=== PATIENT | female | born 1990 | race Caucasian/White ===

== ENCOUNTER 2019-04-09 12:36 | Outpatient (CLI) | payer OTHER, SELFPAY | END 2019-04-09 12:37 | disposition home or self-care (01) | LOC: ANHOBOP 12:42 | PROVIDERS: PCP Internal Medicine; Visit Provider Obstetrics & Gynecology | DX: O02.1 Missed abortion (principal) | CPT/HCPCS: 36415; 84702 ==

== ENCOUNTER 2020-05-07 09:59 | Outpatient (CLI) | payer OTHER, SELFPAY ==
[2020-05-07 10:25] VITALS: BP 123/73; PULSE 109
[2020-05-07 10:30] VITALS: BP 119/72; PULSE 105
[2020-05-07 11:05] VITALS: BP 123/73; PULSE 105
--- NOTE | 2020-05-07 11:15 | PC.NURSE ---
1052-Dr. Melendez notified of pt's admission, negative ROM plus, reactive NST, and history of premature ROM with first . New orders received to discharge pt home.
== END 2020-05-07 11:05 | disposition home or self-care (01) ==
LOC: ANHOBOP 10:06 → ANHOBPP 10:09
PROVIDERS: Family Provider Internal Medicine; PCP Internal Medicine; Visit Provider Obstetrics & Gynecology
DX: O41.8X90 Other specified disorders of amniotic fluid and membranes, unspecified trimester, not applicable or unspecified (principal); Z3A.00 Weeks of gestation of pregnancy not specified
CPT/HCPCS: 59025; 84112; 99199

== ENCOUNTER 2020-06-13 13:51 | Observation (INO) | payer OTHER, SELFPAY ==
[2020-06-13 15:17] VITALS: BMI 30.3
--- NOTE | 2020-06-13 15:19 | OBADM ---
This patient, Lynette Baca, admitted to the OB room 115 at 1351 for observation after falling on wet floor at work. Patient/family oriented to hospital policies and general routines including ID bracelet, bed and alarms, visiting hours, pain management, procedures, bathroom and other care routines, personal items, smoking policy, room service/diet, and visiting hours. Patient/Family are encouraged to report perceived risks to care and to ask questions if they do not understand what they are told or what they should do.
[2020-06-13 17:02] VITALS: BP 139/68; PULSE 77
--- NOTE | 2020-07-07 09:54 | PM.OBTRLD ---
OB - Triage/Final Diagnosis Visit Information Comments/Additional reasons for admission: I have assessed the risk for this patient, Lynette Baca, and determined that she would benefit from observation care. Final Diagnosis (1) Trauma during : Code(s): O9A.219 - Injury, poisoning and certain other consequences of external causes complicating , unspecified trimester Status: Acute
== END 2020-06-13 17:28 | disposition home or self-care (01) ==
PROVIDERS: Admitting Provider Obstetrics & Gynecology; PCP Internal Medicine; Visit Provider Obstetrics & Gynecology
DX: O99.893 Other specified diseases and conditions complicating puerperium (principal); T14.90XA Injury, unspecified, initial encounter; Z3A.35 35 weeks gestation of pregnancy
CPT/HCPCS: G0378; G0379

== ENCOUNTER 2020-07-01 16:31 | Outpatient (CLI) | payer OTHER, SELFPAY ==
[2020-07-01 16:51] VITALS: BP 138/91; PULSE 105
[2020-07-01 17:00] VITALS: BP 126/78; PULSE 110
[2020-07-01 17:09] LABS: Basophils Percent Auto 0.2 % (0.2-1.2); Eosinophils Percent Auto 0.2 % (0-4.4); Hematocrit 34.2 % (37.0-47.0); Hemoglobin 11.4 g/dL (12.0-15.0); Immature Granulocyte Absolute 0.07 K/mm3 (0.00-0.031); Immature Granulocyte Percent A 0.7 % (0-0.5); Lymphocytes Absolute Auto 2.78 K/mm3 (0.9-3.2); Mean Corpuscular HGB Conc 33.3 g/dl (32-36); Mean Corpuscular Hemoglobin 27.7 pg (26-34); Mean Platelet Volume 10.4 fl (7.4-10.4); Monocytes Absolute Auto 0.6 K/mm3 (0.1-0.6); Monocytes Percent Auto 5.4 % (2.6-8.5); Neutrophils Absolute Auto 7.2 K/mm3 (1.3-6.7); Neutrophils Percent Auto 67.5 % (45.5-73.1); Platelet Count Result 184 k/mm3 (150-375); Red Blood Count 4.12 M/mm3 (4.2-5.4); Red Cell Distribution Width 13.3 % (11.5-14.5); White Blood Count 10.7 K/mm3 (4.5-10.0)
[2020-07-01 17:15] LABS: Add Urine Microscopic? YES; Appearance Urine Cloudy (Clear); Bacteria Urine 1+ /hpf; Bilirubin Urine Negative (Negative); Blood Urine Negative (Negative); Color Urine Yellow (Yellow); Glucose Urine UA Negative (Negative); Ketones Urine Negative (Negative); Leukocyte Esterase Ur Trace LEU/UL (NEGATIVE); Mucus Urine Few /lpf; Nitrate Urine Negative (Negative); Protein Urine Negative (Negative); RBC Urine 0-2 /hpf (0-2); Specific Grav Ur 1.013 (1.001-1.035); Squamous Epithelial Cell Urine Many /hpf (Few); Urobilinogen Urine Negative mg/dL (<2.0)
[2020-07-01 17:17] VITALS: BP 138/71; PULSE 105
[2020-07-01 17:17] LABS: Creatinine Urine 112.7 mg/dL; Total Protein Urine Random 15 mg/dL; Ur Ttl Prot Creatinine Ratio 0.13 mg/mg (0-0.20)
[2020-07-01 17:19] LABS: Alanine Aminotransferase 8 U/L (4-35); Albumin Level 3.3 g/dL (3.5-5.1); Alkaline Phosphatase 228 U/L (38-126); Anion Gap 5 mmol/L (8-16); Aspartate Amino Transferase 22 U/L (14-36); Bilirubin,Total 0.2 mg/dL (0.2-1.3); Blood Urea Nitrogen 8 mg/dL (7-17); Calcium 8.7 mg/dL (8.4-10.2); Carbon Dioxide 22 mmol/L (22-30); Chloride 105 mmol/L (98-107); Estimated Glomerular Filt Rate 58; Glucose 97 mg/dL (65-105); Potassium 4.1 mmol/L (3.4-5.0); Sodium 132 mmol/L (137-145); Uric Acid 6.4 mg/dL (2.5-7.5)
--- NOTE | 2020-07-01 17:28 | PC.NURSE ---
1631-Pt came in stating she had some slightly elevated bp's over the weekend (140's/80-90's). She called 's office and was instructed to come in for PIH workup.
--- NOTE | 2020-07-01 17:30 | PC.NURSE ---
1721-K.Aliza CNM called, informed of bp's and labs. Orders received to ask pt if she wants to stay now for induction or come back in a few hours. Pt states she wants to go home and see her son and eat dinner and come back. Order received to set up for low dose pitocin induction tonight at 2200. Pt instructed to come back right away if her headache gets worse, she isn't feeling the baby move, or she just doesn't feel right.
[2020-07-01 17:36] VITALS: TEMP 37.3
== END 2020-07-01 17:30 | disposition home or self-care (01) ==
LOC: ANHOBOP 16:35 → ANHOBPP 16:37
PROVIDERS: PCP Internal Medicine; Visit Provider Obstetrics & Gynecology
DX: O13.9 Gestational [pregnancy-induced] hypertension without significant proteinuria, unspecified trimester (principal); Z3A.00 Weeks of gestation of pregnancy not specified
CPT/HCPCS: 36415; 59025; 80053; 81001; 82570; 84156; 84550; 85025; 87086; 99199

== ENCOUNTER 2020-07-01 21:26 | Inpatient (IN) | payer OTHER, SELFPAY ==
--- NOTE | 2020-07-01 21:26 | LDADM ---
This patient, Lynette Baca, was admitted to Labor/Delivery/Recovery 109 on 07/01/20 at 21:26. Plans for labor, pain management and were discussed with patient. Patient/family oriented to hospital policies and general routines including ID bracelet, bed and alarms, visiting hours, pain management, procedures, bathroom and other care routines, personal items, smoking policy, room service/diet and guest tray routines, security routines, and visiting hours. Patient/Family are encouraged to report perceived risks to care and to ask questions if they do not understand what they are told or what they should do. See OBIX for further documentation.
--- OUTSIDE RECORDS SUMMARY | 2020-07-01 21:30 | XMS_ITS | Encounter Summary ---
:1990 Author Care Team Providers Name Role Phone Marcio Reynolds MD Primary Care Provider [phone] Reason for Visit [facility] 84625-555-18 EXP 1 LOT [id number] LEFT ARM Assessment and Plan 1. History of premature delivery ? [place] (PF) 275 mg/1.1 mL subcutaneous auto-injector Discussion Note: None recorded.Patient educational handouts: No information available. Plan of Care Reminders Provider Appointments Ob Routine Chad Isaac 07/05/2020 MD Al 1:15PM Lab None ? ? recorded. Referral None ? ? recorded. Procedures None ? ? recorded. Surgeries None ? ? recorded. Imaging None ? ? recorded. Medications Name Start Date ? ? [place] (PF) 275 mg/1.1 mL subcutaneous auto-injector ? Inject 1 mL by subcutaneous route. RIGHT ARM mesalamine 1.2 gram tablet,delayed release ? TAKE 4 TABLETS BY MOUTH DAILY ? sertraline 50 mg tablet ? TAKE 1 TABLET BY MOUTH EVERY DAY Medications Administered Name Date ? ? [place] (PF) 275 mg/1.1 mL subcutaneous auto-inject or [id number]:16:46 Inject 1 mL by subcutaneous route. Vitals Height 5 ft 4.25 in Results
--- OUTSIDE RECORDS SUMMARY | 2020-07-01 21:30 | XMS_ITS | Encounter Summary ---
:1990 Author Care Team Providers Name Role Phone Marcio Reynolds MD Primary Care Provider [phone] Reason for Visit OB visit 32w4d EDC 07/12/2020 LMP 10/06/2019 OSEAS INJECTION TODAY given into right arm lot [id number] exp 01/2022 Assessment and Plan 1. Routine care Additional precautionary measu res were taken to minimize potential exposure to the Covid-19 virus during this patien t?s visit, including available hand water inspector upon arrive, temperature check and being asked a series of screening questions. All staff wore face coverings during this en counter, as well as provided additional cleaning and sanitizing of all surfaces, including countertops, pens, chairs, door handles, light switches, etc, prior to a nd following the patient?s visit. Discussion Note: None recorded.Patient educational handouts: No information available. Plan of Care Reminders Provider Appointments Ob Routine Chad Isaac 07/05/2020 MD Al 1:15PM Lab None ? ? recorded. Referral None ? ? recorded. Procedures None ? ? recorded. Surgeries None ? ? recorded. Imaging None ? ? recorded. Medications Name Start Date ? ? [place] (PF) 275 mg/1.1 mL subcutaneous auto-injector ? Inject 1 mL by subcutaneous route. RIGHT ARM mesalamine
--- OUTSIDE RECORDS SUMMARY | 2020-07-01 21:30 | XMS_ITS | Encounter Summary ---
:1990 Author Care Team Providers Name Role Phone Marcio Reynolds MD Primary Care Provider [phone] Reason for Visit injection [place] 275mg/1.1 ML auto-injector Assessment and Plan 1. History of premature delivery ? [place] (PF) 275 mg/1.1 mL subcutaneous auto-injector Discussion [...] TABLET BY MOUTH EVERY DAY Medications Administered None recorded. Vitals Height 5 ft 4.25 in Results Lab Results None recorded. Allergies Code Code System Name Reaction Severity Onset
--- OUTSIDE RECORDS SUMMARY | 2020-07-01 21:30 | XMS_ITS | Encounter Summary ---
:1990 Author Care Team Providers Name Role Phone Marcio Reynolds MD Primary Care Provider [phone] Reason for Visit injection [facility] injection left arm [facility] [id number] 01/2022[facility] [id number] Assessment and Plan 1. History of premature delivery ? [place] (PF) 275 mg/1.1 mL subcutaneous auto-injector Discussion [...] DAY Medications Administered Name Date ? ? [place] (PF) 275 mg/1.1 mL subcutaneous auto-inject or [id number]:15:53 Inject 1 mL by subcutaneous route. Vitals Height
--- OUTSIDE RECORDS SUMMARY | 2020-07-01 21:30 | XMS_ITS | Encounter Summary ---
:1990 Author Care Team Providers Name Role Phone Marcio Reynolds MD Primary Care Provider [phone] Reason for Visit OB visit dominga injecction given in left arm. lot #[id number] exp 01-31 [facility]#[id number] slm Assessment and Plan Assessment Note Patient is ___weeks . Discu ssed plan. 1. History of premature delivery ? [place] (PF) 275 mg/1.1 mL subcutaneous auto-injector Discussion Note: None recorded.Patient educational handouts: No information available. Plan of Care Reminders Provider Appointments Ob Routine Chad Isaac 07/05/2020 MD Al 1:15PM Lab None ? ? recorded. Referral None ? ? recorded. Procedures None ? ? recorded. Surgeries None ? ? recorded. Imaging None ? ? recorded. Medications Name Start Date ? ? [place] (PF) 275 mg/1.1 mL subcutaneous auto-injector ? Inject 1 mL by subcutaneous route. RIGHT ARM mesalamine 1.2 gram tablet,delayed release ? TAKE 4 TABLETS BY MOUTH DAILY ? sertraline 50 mg tablet ? TAKE 1 TABLET BY MOUTH EVERY DAY Medications Administered Name Date ? ? [place] (PF) 275 mg/1.1 mL subcutaneous auto-inject or 2020-05-08
--- OUTSIDE RECORDS SUMMARY | 2020-07-01 21:30 | XMS_ITS | Encounter Summary ---
:1990 Author Care Team Providers Name Role Phone Marcio Reynolds MD Primary Care Provider [phone] Reason for Visit injection patient given [place] injection for histo ry of labor into Right arm lot [id number] exp 01/31 [facility] associate Assessment and Plan 1. History of premature delivery ? [place] (PF) 275 mg/1.1 mL subcutaneous auto-injector Discussion Note: None recorded.Patient educational handouts: No information available. Plan of Care Reminders Provider Appointments Ob Routine Chad Isaac 07/05/2020 MD Al 1:15PM Lab None ? ? recorded. Referral None ? ? recorded. Procedures None ? ? recorded. Surgeries None ? ? recorded. Imaging None ? ? recorded. Medications Name Start Date ? ? [place] (PF) 275 mg/1.1 mL subcutaneous auto-injector ? Inject 1 mL by subcutaneous route. RIGHT ARM mesalamine 1.2 gram tablet,delayed release ? TAKE 4 TABLETS BY MOUTH DAILY ? sertraline 50 mg tablet ? TAKE 1 TABLET BY MOUTH EVERY DAY Medications Administered Name Date ? ? [place] (PF) 275 mg/1.1 mL subcutaneous auto-inject or [id number]:35:42 Inject 1 mL by subcutaneous route. Notes: patient was given m
--- OUTSIDE RECORDS SUMMARY | 2020-07-01 21:30 | XMS_ITS | Encounter Summary ---
:1990 Author Care Team Providers Name Role Phone Marcio Reynolds MD Primary Care Provider [phone] Reason for Visit None recorded. Assessment and Plan 1. Low lying placenta ? US, obstetric, follow-up Discussion Note: None recorded.Patient educational handouts: No information available. Plan of Care Reminders Provider Appointments Ob Routine Chad Isaac 07/05/2020 MD Al 1:15PM Lab None ? ? recorded. Referral None ? ? recorded. Procedures None ? ? recorded. Surgeries None ? ? recorded. Imaging [facility] Obstetric, Follow-up 04/23/2020 Medications Name Start Date ? ? [place] (PF) 275 mg/1.1 mL subcutaneous auto-injector ? Inject 1 mL by subcutaneous route. RIGHT ARM mesalamine 1.2 gram tablet,delayed release ? TAKE 4 TABLETS BY MOUTH DAILY ? sertraline 50 mg tablet ? TAKE 1 TABLET BY MOUTH EVERY DAY Medications Administered None recorded. Vitals None recorded. Results Lab Results None recorded. Allergies Code Code System Name Reaction Severity Onset NKDA ? ? ?
--- OUTSIDE RECORDS SUMMARY | 2020-07-01 21:30 | XMS_ITS | Encounter Summary ---
:1990 Author Care Team Providers Name Role Phone Marcio eRynolds MD Primary Care Provider [phone] Reason for Visit OB visit Assessment and Plan Assessment Note Patient is ___weeks . Discu ssed plan. 1. Routine care Discussion Note: None recorded.Patient educational handouts: No information available. Plan of Care Reminders Provider Appointments Ob Routine Chad Isaac 07/05/2020 MD Al 1:15PM Lab None ? ? recorded. Referral None ? ? recorded. Procedures None ? ? recorded. Surgeries None ? ? recorded. Imaging None ? ? recorded. Medications Name Start Date ? ? [place] (PF) 275 mg/1.1 mL subcutaneous auto-injector ? Inject 1 mL by subcutaneous route. RIGHT ARM mesalamine 1.2 gram tablet,delayed release ? TAKE 4 TABLETS BY MOUTH DAILY ? sertraline 50 mg tablet ? TAKE 1 TABLET BY MOUTH EVERY DAY Medications Administered None recorded. Vitals Height Weight BMI Blood Pressure 5 ft 4.25 in 182 lbs 31 kg/m2 (1) 147/84 mm[H g] (2) 142/70 mm[Hg ] Results Lab Results
--- OUTSIDE RECORDS SUMMARY | 2020-07-01 21:30 | XMS_ITS | Encounter Summary ---
:1990 Author Care Team Providers Name Role Phone Marcio Reynolds MD Primary Care Provider [phone] Reason for Visit None recorded. Assessment and Plan 1. Low lying placenta ? US, obstetric, transvagina l ? US, obstetric, follow-up Discussion Note: None recorded.Patient educational handouts: No information available. Plan of Care Reminders Provider Appointments Ob Routine Chad Isaac 07/05/2020 MD Al 1:15PM Lab None recorded. ? ? Referral None recorded. ? ? Procedures None recorded. ? ? Surgeries None recorded. ? ? Imaging US, Obstetric, Izabel huerta Transvaginal 05/21/2020 ? US, Obstetric, Iazbel huerta Follow-up 05/21/2020 Medications Name Start Date ? ? [place] (PF) 275 mg/1.1 mL subcutaneous auto-injector ? Inject 1 mL by subcutaneous route. RIGHT ARM mesalamine 1.2 gram tablet,delayed release ? TAKE 4 TABLETS BY MOUTH DAILY ? sertraline 50 mg tablet ? TAKE 1 TABLET BY MOUTH EVERY DAY Medications Administered None recorded. Vitals None recorded. Results
--- OUTSIDE RECORDS SUMMARY | 2020-07-01 21:30 | XMS_ITS ---
:1990 Author Care Team Providers Name Role Phone LAKSHMI MCCLELLAN MD Primary Care Provider [phone] Allergies Code Code System Name Reaction Severity Status Onset NKDA ? Medications Name Status Start Date Stop Date ? ? citalopram 10 mg tablet Completed 08/25/2017 06/19/19 21 take 1 tablet by oral route every day Diflucan 150 mg tablet Completed 05/23/2018 0 take 1 tablet by oral route once hydrocodone 5 mg-acetaminophen 325 mg tablet Completed 11/201904/27/2019 take 1-2 tablet by oral route every 6 hours as needed for pain [place] (PF) 275 mg/1.1 mL subcutaneous auto-injector Active ? Not available Inject 1 mL by subcutaneous route. RIGHT ARM mesalamine 1.2 gram tablet,delayed release Active ? Not available TAKE 4 TABLETS BY MOUTH DAILY Metrogel Vaginal 0.75 % Completed 07/24/2011 07/24/19 12 insert 1 applicatorful (37.5MG) by vaginal route every day at bedtime misoprostol 200 mcg tablet Completed 04/19/201904/27 place four tablets in the vagina Ortho-Cyclen (28) 0.25 mg-35 mcg tablet Completed 04/25/19 19 04/13/2019 take 1 tablet by oral route every day Active ? Not available sertraline 25 mg tablet Completed 11/30/2016 01/20/20 17 take 1 tablet by oral route every day sertraline 50 mg tablet Active ? Not avai lable TAKE 1 TABLET BY MOUTH EVERY DAY Problems Name Status Onset Date Source ? Screening for Mal
--- OUTSIDE RECORDS SUMMARY | 2020-07-01 21:30 | XMS_ITS | Encounter Summary ---
:1990 Author Care Team Providers Name Role Phone Marcio Reynolds MD Primary Care Provider [phone] Reason for Visit Depo shot Depo injection [facility] 87016-540-19 LOT [id number] EXP 12/2021 Assessment and Plan 1. History of premature delivery ? [place] (PF) 275 mg/1.1 mL subcutaneous auto-injector Discussion [...] (PF) 275 mg/1.1 mL subcutaneous auto-inject or [id number]:40:42 Inject 1 mL by subcutaneous route. Vitals Height
--- OUTSIDE RECORDS SUMMARY | 2020-07-01 21:30 | XMS_ITS | Encounter Summary ---
:1990 Author Care Team Providers Name Role Phone Marcio Reynolds MD Primary Care Provider [phone] Reason for Visit OB visit Dominga injection given to pt. in Right a rm. LOT# [id number]. EXP: . [facility]# [id number]. DA,medical insurance coder. Assessment and Plan Assessment Note Patient is ___weeks . Discu ssed plan. 1. Routine care 2. History of premature delivery ? [place] (PF) [...]
--- OUTSIDE RECORDS SUMMARY | 2020-07-01 21:30 | XMS_ITS | Encounter Summary ---
:1990 Author Care Team Providers Name Role Phone Marcio Reynolds MD Primary Care Provider [phone] Reason for Visit OB visit [id number] todayMakena injection [facility] 16948 -301-03 LOT [id number] EXP 12/2021 RIGHT ARM Assessment and Plan Assessment Note Patient is ___weeks . Discu ssed plan. 1. History of premature delivery ? [place] (PF) 275 mg/1.1 mL subcutaneous auto-injector Discussion Note: None recorded.Patient educational handouts: No information available. Plan of Care Reminders Provider Appointments Ob Routine Chad Isaac 07/05/2020 MD Al 1:15PM Lab None ? ? recorded. Referral None ? ? recorded. Procedures None ? ? recorded. Surgeries None ? ? recorded. Imaging None ? ? recorded. Medications Name Start Date ? ? [place] (PF) 275 mg/1.1 mL subcutaneous auto-injector ? Inject 1 mL by subcutaneous route. RIGHT ARM mesalamine 1.2 gram tablet,delayed release ? TAKE 4 TABLETS BY MOUTH DAILY ? sertraline 50 mg tablet ? TAKE 1 TABLET BY MOUTH EVERY DAY Medications Administered Name Date ? ? [place] (PF) 275 mg/1.1 mL subcutaneous auto-inject or 2020-06
--- OUTSIDE RECORDS SUMMARY | 2020-07-01 21:30 | XMS_ITS | Encounter Summary ---
:1990 Author Care Team Providers Name Role Phone Marcio Reynolds MD Primary Care Provider [phone] Reason for Visit OB visit Assessment and Plan 1. Routine care 2. Low lying placenta Discussion Note: None recorded.Patient educational handouts: No information available. Plan of Care Reminders Provider Appointments Ob Routine Chad Isaac 07/05/2020 MD Al 1:15PM Lab None ? ? recorded. Referral None ? ? recorded. Procedures None ? ? recorded. Surgeries None ? ? recorded. Imaging None ? ? recorded. Medications Name Start Date ? ? [place] (PF) 275 mg/1.1 mL subcutaneous auto-injector ? Inject 1 mL by subcutaneous route. RIGHT ARM mesalamine 1.2 gram tablet,delayed release ? TAKE 4 TABLETS BY MOUTH DAILY ? sertraline 50 mg tablet ? TAKE 1 TABLET BY MOUTH EVERY DAY Medications Administered None recorded. Vitals Height Weight BMI Blood Pressure 5 ft 4.25 in 176 lbs 30 kg/m2 128/78 mm[Hg] Results Lab Results None recorded. Allergies Code Code System Name Reaction Severity Onset
--- OUTSIDE RECORDS SUMMARY | 2020-07-01 21:30 | XMS_ITS | Encounter Summary ---
:1990 Author Care Team Providers Name Role Phone Marcio Reynolds MD Primary Care Provider [phone] Reason for Visit None recorded. Assessment and [...] ? Imaging US, Obstetric, Izabel huerta Transvaginal 06/18/2020 ? US, Obstetric, Izabel huerta Follow-up 06/18/2020 Medications Name Start Date ? ? [place] (PF) 275 mg/1.1 mL subcutaneous auto-injector ? Inject 1 mL by subcutaneous route. RIGHT ARM mesalamine 1.2 gram tablet,delayed release ? TAKE 4 TABLETS BY MOUTH DAILY ? sertraline 50 mg tablet ? TAKE 1 TABLET BY MOUTH EVERY DAY Medications Administered None recorded. Vitals None recorded. Results
--- OUTSIDE RECORDS SUMMARY | 2020-07-01 21:30 | XMS_ITS | Encounter Summary ---
:1990 Author Care Team Providers Name Role Phone Marcio Reynolds MD Primary Care Provider [phone] Reason for Visit injection patient given dominga injection in right arm lot [id number] exp 01/2022 this was given for history of labor Assessment and Plan 1. History of premature delivery ? Dominga [...] (PF) 275 mg/1.1 mL subcutaneous auto-inject or [id number]:02:49 Inject 1 mL by subcutaneous route. Notes: patient give
[2020-07-01 21:46] VITALS: BP 116/82; PULSE 111; RESP 20; TEMP 37.2
[2020-07-01 22:00] VITALS: BP 127/73; PULSE 89; BMI 30.3
[2020-07-01 22:06] LABS: Basophils Percent Auto 0.3 % (0.2-1.2); Eosinophils Percent Auto 0.3 % (0-4.4); Hematocrit 35.5 % (37.0-47.0); Hemoglobin 11.9 g/dL (12.0-15.0); Immature Granulocyte Absolute 0.09 K/mm3 (0.00-0.031); Immature Granulocyte Percent A 0.8 % (0-0.5); Lymphocytes Absolute Auto 3.03 K/mm3 (0.9-3.2); Lymphocytes Percent Auto 28.3 % (18.3-44.2); Mean Corpuscular HGB Conc 33.5 g/dl (32-36); Mean Corpuscular Hemoglobin 27.4 pg (26-34); Mean Corpuscular Volume 81.6 fl (80-100); Mean Platelet Volume 10.4 fl (7.4-10.4); Monocytes Absolute Auto 0.6 K/mm3 (0.1-0.6); Monocytes Percent Auto 5.5 % (2.6-8.5); Neutrophils Absolute Auto 6.9 K/mm3 (1.3-6.7); Neutrophils Percent Auto 64.8 % (45.5-73.1); Platelet Count Result 190 k/mm3 (150-375); Red Blood Count 4.35 M/mm3 (4.2-5.4); Red Cell Distribution Width 13.3 % (11.5-14.5); White Blood Count 10.7 K/mm3 (4.5-10.0)
[2020-07-01 22:19] LABS: Alanine Aminotransferase 9 U/L (4-35); Albumin Level 3.3 g/dL (3.5-5.1); Alkaline Phosphatase 230 U/L (38-126); Anion Gap 6 mmol/L (8-16); Aspartate Amino Transferase 23 U/L (14-36); Bilirubin,Total 0.2 mg/dL (0.2-1.3); Blood Urea Nitrogen 9 mg/dL (7-17); Carbon Dioxide 21 mmol/L (22-30); Chloride 106 mmol/L (98-107); Estimated Glomerular Filt Rate > 60; Glucose 107 mg/dL (65-105); Potassium 3.8 mmol/L (3.4-5.0); Sodium 133 mmol/L (137-145)
[2020-07-01] MEDS: LACTATED RINGERS 1,000 ML 125 ML IV CONT (22:19)
[2020-07-01] MEDS: AMPICILLIN 2 GM/NS 100 ML 2 GM/100 ML BAG IVPB (22:20)
[2020-07-01] MEDS: OXYTOCIN 30 UNITS/NS 500 ML 30 UNITS/500 ML BAG IV CONT (22:20)
[2020-07-01 22:59] VITALS: BP 138/91; PULSE 87
[2020-07-01 23:28] VITALS: BP 123/78; PULSE 82
[2020-07-02] VITALS (126 sets, daily range): BP systolic 89–141; BP diastolic 59–92; PULSE 60–119; RESP 16–20; TEMP 36.4–37.7; O2SAT 98–100
[2020-07-02] MEDS: CALCIUM CARBONATE (TUMS) 500 MG (200 MG ELEMENTAL) PO (01:17)
[2020-07-02] MEDS: FAMOTIDINE 20 MG/2 ML VIAL IV PUSH (01:17)
[2020-07-02] MEDS: AMPICILLIN 1 GM/NS 50 ML 1 GM/50 ML BAG IVPB ×2 (02:19→06:34)
[2020-07-02] MEDS: LACTATED RINGERS 1,000 ML 125 ML IV CONT (02:42)
--- NOTE | 2020-07-02 02:51 | WPDANESEPP ---
Anes - Eval Pre Procedure Procedure: labor epidural Date/Time: 07/02/20 02:51 Surgeon: darryn Pre Op Diagnosis: Induction of Labor Patient Data Age: 29 Gender: F Height: 1.65 m Weight: 82.7 kg Last Vital Signs Temp 37.1 C 07/02/20 02:19 Pulse 86 07/02/20 02:30 Resp 18 07/02/20 02:19 BP 141/76 H 07/02/20 02:30 Pulse Ox 100 07/02/20 02:48 Allergies Allergy/AdvReac Type Severity Reaction Status Date / Time No Known Allergies Allergy Unknown Verified 06/13/20 15:40 Home Medications Medication Instructions Recorded Confirmed Type PNV cmb#95-ferrous fumarate-FA 1 tablet PO DAILY 06/13/20 07/01/20 History [] mesalamine 4.8 g PO DAILY 06/13/20 07/01/20 History sertraline 50 mg PO HS 06/13/20 07/01/20 History Laboratory Tests 07/01/20 07/01/20 07/01/20 21:54 21:54 21:54 WBC 10.7 K/mm3 H K/mm3 (4.5-10.0) RBC 4.35 M/mm3 M/mm3 (4.2-5.4) Hgb 11.9 g/dL L g/dL (12.0-15.0) Hct 35.5 % L % (37.0-47.0) MCV 81.6 fl fl (80-100) MCH 27.4 pg pg (26-34) MCHC 33.5 g/dl g/dl (32-36) RDW 13.3 % % (11.5-14.5) Plt Count 190 k/mm3 k/mm3 (150-375) MPV 10.4 fl fl (7.4-10.4) Immature Gran % (Auto) 0.8 % H % (0-0.5) Neut % (Auto) 64.8 % % (45.5-73.1) Lymph % (Auto) 28.3 % % (18.3-44.2) [place] % (Auto) 5.5 % % (2.6-8.5) Eos % (Auto) 0.3 % % (0-4.4) Baso % (Auto) 0.3 % % (0.2-1.2) Lymph # (Auto) 3.03 K/mm3 K/mm3 (0.9-3.2) [place] # (Auto) 0.6 K/mm3 K/mm3 (0.1-0.6) Eos # (Auto) 0.0 K/mm3 K/mm3 (0-0.3) Baso # (Auto) 0.0 K/mm3 K/mm3 (0.0-0.1) Abs Immat Gran (auto) 0.09 K/mm3 H K/mm3 (0.00-0.031) Absolute Neuts (auto) 6.9 K/mm3 H K/mm3 (1.3-6.7) Absolute Nucleated RBC 0.0 K/mm3 K/mm3 (0.0-0.012) Nucleated RBC % 0.0 % % (0.0-0.2) Sodium Potassium Chloride Carbon Dioxide Anion Gap BUN Creatinine Estim Creat Clear Calc Estimated GFR Glucose Uric Acid 6.0 mg/dL mg/dL (2.5-7.5) Calcium Total Bilirubin AST ALT Alkaline Phosphatase Total Protein Albumin RPR Pending Blood Type Antibody Screen 07/01/20 07/01/20 21:54 21:54 WBC RBC Hgb Hct MCV MCH MCHC RDW Plt Count MPV Immature Gran % (Auto) Neut % (Auto) Lymph % (Auto) [place] % (Auto) Eos % (Auto) Baso % (Auto) Lymph # (Auto) [place] # (Auto) Eos # (Auto) Baso # (Auto) Abs Immat Gran (auto) Absolute Neuts (auto) Absolute Nucleated RBC Nucleated RBC % Sodium 133 mmol/L L mmol/L (137-145) Potassium 3.8 mmol/L mmol/L (3.4-5.0) Chloride 106 mmol/L mmol/L (98-107) Carbon Dioxide 21 mmol/L L mmol/L (22-30) Anion Gap 6 mmol/L L mmol/L (8-16) BUN 9 mg/dL mg/dL (7-17) Creatinine 0.80 mg/dL mg/dL (0.7-1.0) Estim Creat Clear Calc Not Reportable Estimated GFR > 60 (59 - ) Glucose 107 mg/dL H mg/dL (65-105) Uric Acid Calcium 9.0 mg/dL mg/dL (8.4-10.2) Total Bilirubin 0.2 mg/dL mg/dL (0.2-1.3) AST 23 U/L U/L (14-36) ALT 9 U/L U/L (4-35) Alkaline Phosphatase 230 U/L H U/L (38-126) Total Protein 6.0 g/dL L g/dL (6.3-8.2) Albumin 3.3 g/dL L g/dL (3.5-5.1) RPR Blood Type O Positive Antibody Screen Negative Patient hx anesthesia problems: n
[2020-07-02] MEDS: ACETAMINOPHEN 500 MG TABLET 1000 MG PO (04:32)
[2020-07-02] MEDS: LORATADINE 10 MG TABLET PO (05:30)
[2020-07-02 06:59] LABS: Rapid Plasma Reagin Non-Reactive (NonReactive)
--- NOTE | 2020-07-02 07:52 | WPDOBADMIT ---
Obstetrics - Admit Note Admission Note: 29 y/o @ 38w4d here for induction of labor d/t gestational hypertension. Cervix /-2 AROM performed. Moderate amount of clear odorless fluid record reviewed. No pertinent additions to the history and/or any subsequent changes in the physical findings that are not consistent with the expected course of the were found. Additions to the history and/or subsequent changes in the physical findings follow. None.
--- NOTE | 2020-07-02 09:36 | PM.OBPRVD ---
OB - Delivery Note Procedure Delivery date: 07/02/20 events: Pre-Eclampsia Intrapartal events: None Induction method: per pitocin protocol Delivery monitor: external FHT and external uterine Route of delivery: Episiotomy description: None Laceration Description: Perineal - 2nd Degree Delivery repair: vicryl Quantitative Blood Loss (ml): 52 Anesthesia type: Epidural Narrative: Infant delivered right after we were called for delivery. Nurse assist. Upon arrival baby was skin to skin. Cord clamped and gasses collected. Placenta delivered prior to being able to collect cord blood. Mother and baby in stable condition. Placenta delivery and repair per Oziel GATES. [place] Baby Date of : 07/02/20 Time of : 09:14 Weeks of gestation at delivery: 38 Weight (pounds): 7 Weight (ounces): 3 presentation: vertex Placenta delivery description: Spontaneous score one minute: 9 score five minutes: 9
[2020-07-02] MEDS: OXYTOCIN 30 UNITS/NS 500 ML 30 UNITS/500 ML BAG 125 UNITS IV CONT (09:43)
--- NOTE | 2020-07-02 10:45 | PC.NURSE ---
All entries made today 07-02-20 after 0600 by Alia SMITH were actually made by Pj SMITH.
--- NOTE | 2020-07-02 11:58 | PC.NURSE ---
Patient transferred to post room #277 per wheelchair from labor and delivery. Support person present. Oriented to unit, room, information board, rooming in, admission packet and security measures. Patient verbalizes understanding.
[2020-07-02] MEDS: IBUPROFEN 600 MG TABLET PO ×2 (14:26→21:52)
[2020-07-02] MEDS: ACETAMINOPHEN 325 MG TABLET 650 MG PO (18:57)
[2020-07-03] VITALS (7 sets, daily range): BP systolic 131–139; BP diastolic 77–92; PULSE 66–88; RESP 16–18; TEMP 36.6–37.2; O2SAT 99–100
[2020-07-03] MEDS: IBUPROFEN 600 MG TABLET PO ×3 (04:21→19:40)
[2020-07-03 05:18] LABS: Hematocrit 33.3 % (37.0-47.0); Hemoglobin 11.1 g/dL (12.0-15.0)
--- NOTE | 2020-07-03 07:38 | P.PNOB_ITS ---
OB - PN: Subj Subjective Date/time seen: 07/03/20 07:38 Patient comments: no complaints baby status: doing well OB - PN: Obj Data Labs CBC & Chem 7: 07/03/20 04:19 07/01/20 21:54 Labs: Laboratory Results - last 24 hr 07/03/20 04:19 Hgb 11.1 L Hct 33.3 L OB - PN A/P Plan day: 1 Plan: routine care Time Spent With Patient Time: Total time spent is greater than 50% in coordination of care (as documented) at patient's floor/unit and/or counseling patient: Review of Systems Review of Systems: All systems reviewed & are unremarkable except as noted in HPI and below Exam Const: General: cooperative and healthy appearing Psych: Attitude: cooperative Thought process: Normal thought process pre sent Insight: Good insight present (Psych) Judgement: Good judgement present (Psych)
--- NOTE | 2020-07-03 07:47 | WPDANLDPN2 ---
Anes-Prog Note L&D Date/Time: 07/03/20 07:47 Comfortable throughout: delivery Neuraxial method: epidural Epidural/Spinal procedure site: clean & non-tender Neuro status: Neuro function grossly intact. Cardiovascular status: normal Respiratory status: normal Airway patency: baseline Mental status: baseline Post-Op hydration status: normal Vital Signs: Last Vital Signs Temp 36.9 C 07/03/20 04:22 Pulse 88 07/03/20 04:22 Resp 16 07/03/20 04:22 BP 131/87 07/03/20 04:22 Pulse Ox 100 07/02/20 12:00 Pain score (VAS): 04/21 I/O: Intake & Output 07/02/20 07/02/20 07/03/20 15:59 23:59 07:59 Intake Total 2607 662 8304 Output Total 1350 3800 Balance 1600 -650 -1800 Post-procedural complaints: none Patient feedback: Patient satisfied with anesthetic care.
[2020-07-03] MEDS: ACETAMINOPHEN 325 MG TABLET 650 MG PO ×2 (08:44→23:10)
[2020-07-03] MEDS: DOCUSATE SODIUM 100 MG CAPSULE PO ×2 (08:46→23:10)
[2020-07-03] MEDS: MEASLES,MUMPS,RUBELLA VACCINE 0.5 ML VIAL SUB-Q (12:56)
[2020-07-04] MEDS: IBUPROFEN 600 MG TABLET PO (05:15)
[2020-07-04 07:50] VITALS: BP 137/92; PULSE 79; RESP 18; TEMP 37.3; O2SAT 99
--- NOTE | 2020-07-04 07:52 | PM.OBPNVD ---
OB - PN: Subj Subjective Date/time seen: 07/04/20 07:52 Patient comments: no complaints baby status: doing well OB - PN: Obj Data Labs CBC & Chem 7: 07/03/20 04:19 07/01/20 21:54 OB - PN A/P Plan day: 2 Plan: routine care and discharge home (F/U in 1 week for bp check) Comments: Pt denies h/a, v/d, or e/p. Discussed discharge today vs 72 hour stay. Pt desires discharge. PIH precautions discussed in detail. Return to hospital in 1-2 days for pp check and return to my office in 1 week for bp check. Pt verbalized understanding. Time Spent With Patient Time: Total time spent is greater than 50% in coordination of care (as documented) at patient's floor/unit and/or counseling patient: Time with patient: less than 15 minutes Review of Systems Review of Systems: All systems reviewed & are unremarkable except as noted in HPI and below Exam Narrative: Exam Narrative: Fundus firm and vaginal flow controlled. No lower ext redness, warmth, or edema. Negative homans. Denies h/a, v/d or e/p. Reflexes normal. Const: General: comfortable Chest: Breast/axilla inspection: normal inspection of the breasts Resp: Effort & Inspection: normal respiratory effort Cardio: Rate: regular rate GI: GI Palp: Yes Soft to palpation Psych: Appearance: grossly normal Affect: normal affect Attitude: cooperative Thought content: Yes Normal thought content present Judgement: Good judgement present (Psych)
[2020-07-04] MEDS: ACETAMINOPHEN 325 MG TABLET 650 MG PO (07:57)
[2020-07-04] MEDS: DOCUSATE SODIUM 100 MG CAPSULE PO (07:58)
[2020-07-04] MEDS: WITCH HAZEL 40 PADS 1 PAD TOPICAL (07:58)
[2020-07-04] MEDS: BENZOCAINE 20% AER SPR (*SP) 56 GM CAN 1 SPRAY TOPICAL (07:58)
[2020-07-04 08:09] VITALS: PULSE 66; RESP 16; O2SAT 99
[2020-07-05 10:24] VITALS: BP 130/80; PULSE 84; RESP 20; TEMP 36.8; O2SAT 100
--- NOTE | 2020-07-11 07:55 | PM.OBDSVD ---
DS: Admitting Diagnosis Admitting Diagnosis Admitting Diagnosis: Labor DS: Discharge Diagnosis Discharge Diagnosis (1) Vaginal delivery: Code(s): O80 - Encounter for full-term uncomplicated delivery Status: Acute OB - DS: Summary OB Procedures : None OB Procedures Intrapartum: Spontaneous Vag Delivery OB Procedures: : None Time Spent with Patient Time attestation: Total time spent providing and/or coordinating discharge services: Discharge Plan Discharge Attending physician on discharge: Marianne Abrams Consulting providers: Marianne Abrams ; Rosa Elliott Discharging Clinician: Marianne Abrams Patient Disposition: Home, Self-Care Activity: pelvic rest Diet: as tolerated Discharge Instructions: Education: Mom and Baby Guide Given to: Mother Follow-Up: Call your delivering provider's office for an appointment to be seen in: 4 Weeks Mom and baby should come to the [facility] for the follow-up appointment. Appointment Date/Time: July 05, 2020 at 10:00 am What to expect at your follow-up visit: Blood Pressure Check Physical Assessment Call [phone] if you are unable to keep your appointment time. BREAST CARE: * Wear a snug supportive bra/supports bra. * For engorgement discomfort: Bottle Feeding: * May apply ice packs * No stimulation to breasts, no pumping *Motrin/Ibuprofen for discomfort EPISIOTOMY/PERINEAL CARE: * Until bleeding stops, use your rosalia bottle after urinating * Change your pad frequently throughout the day * You may take sitz baths several times a day (fill your bathtub with warm water and soak for 20 minutes.) Do NOT bathe in the water * No tub baths until seen by your physician - You may shower ACTIVITY: * Rest as much as possible. * Do not exercise or lift anything heavier than your baby (such as laundry or other children.) * Avoid stairs or driving as much as possible. * Do not put anything into the vagina. No douching, tampons, or sexual activity until seen by physician. NOTIFY PHYSICIAN IF YOU HAVE ANY QUESTIONS OR IF ANY OF THE FOLLOWING SYMPTOMS OCCUR: * If your vaginal area becomes red, swollen, or more painful than what you have experienced in the hospital. * If your vaginal bleeding becomes foul smelling. * If your vaginal bleeding becomes more heavy than a period or if your bleeding changes from pink to bright red. However, you may pass an occasional walnut-sized clot once or twice for the first week . * If you experience a sharp, shooting pain in your calves. * If you discover a hard, reddened area on your breast or if you experience flu-like symptoms. DIET: * Eat regular, well-balanced meals. * Drink plenty of fluids daily. Stand Alone Forms: General Discharge Information Follow-up/Referrals: Marianne Abrams CNM [Certified Nurse Diversity Specialist] - Discharge Medications: Continued sertraline 50 mg tablet 50 mg PO HS RF: 0 mesalamine 1.2 gram tablet,delayed release (DR/EC) 4.8 g PO DAILY RF: 0 PNV [id number] fumarate-FA [] 28 mg iron- 800 mcg Tablet 1 tablet PO DAILY RF: 0 Date of admission: 07/01/20 21:26 Primary Care Provider: GailMarcio Admitting Provider: Lele Melendez Attending physician on admission: Lele Melendez Condition: Stable
== END 2020-07-04 12:47 | disposition home or self-care (01) | DRG 807 ==
LOC: ANHLDR 21:36 → ANHOB2 07-02 12:05
PROVIDERS: Advanced Practice Midwife; Admitting Provider Obstetrics & Gynecology; PCP Internal Medicine; Visit Provider Obstetrics & Gynecology
DX: O13.4 Gestational [pregnancy-induced] hypertension without significant proteinuria, complicating childbirth (principal); Z37.0 Single live birth; Z3A.38 38 weeks gestation of pregnancy; O99.824 Streptococcus B carrier state complicating childbirth; O70.1 Second degree perineal laceration during delivery; O69.81X0 Labor and delivery complicated by cord around neck, without compression, not applicable or unspecified; O99.344 Other mental disorders complicating childbirth; F41.9 Anxiety disorder, unspecified
CPT/HCPCS: 36415; 80053; 84550; 85014; 85018; 85025; 86592; 86850; 86900; 86901; 90710; A9270; J0290; J2590; J7120

== ENCOUNTER 2020-07-11 09:44 | Emergency (ER) | payer OTHER, SELFPAY ==
--- NOTE | ~2020-07-11 | US_ITS ---
EXAMINATION: US pelvic complete DATE: 07/11/2020 12:34 INDICATION: pain. Comparison:04/27/2019 TECHNIQUE: Multiple transabdominal and endovaginal sonographic images of the pelvis performed. FINDINGS: The uterus measures 14.8 x 9.6 x 7.2 cm. The endometrium is not well delineated, although m easures approximate 1.8 cm in thickness with heterogeneous internal debris and areas of internal vasc ularity, suspicious for retained products of conception. The right ovary measures 2.6 x 1.8 x 1.8 cm and the left ovary measures 2.8 x 2.1 x 2.5 cm. There ar e small follicles in each ovary. Normal doppler signal in both ovaries. There is no free fluid in the pelvis. There are no abnormal masses seen on either side. IMPRESSION: 1. Thickened heterogeneous endometrium containing internal debris, suspicious for retained products o f conception. Reviewed, dictated and finalized at location B. IMPRESSION: 1. Thickened heterogeneous endometrium containing internal debris, suspicious f or retained products of conception.
--- NOTE | ~2020-07-11 | CT_ITS ---
EXAMINATION: CT abdomen pelvis wo con DATE: 07/11/2020 10:49 INDICATION: Flank pain. One week . TECHNIQUE: Computed tomography (CT) of the abdomen and pelvis was performed without intravenous contr ast. The dose-length product was 482.04 mGy-cm. Automated exposure control and iterative reconstructi on technique were employed. COMPARISON: CT dated 06/08/2012 FINDINGS: Lung bases are unremarkable. No significant pleural or pericardial effusion.. Heart size is normal. Small fat-containing periumbilical hernia. Enlarged post gravid uterus. Nonobstructive bowel gas pattern. The liver, spleen, pancreas, adrenal glands and kidneys are unremarkable. Gallbladder is present. The re is a fat-containing periumbilical hernia. No renal stones or hydronephrosis. Gallbladder is presen t. The liver, spleen, pancreas, adrenal glands and kidneys are unremarkable. No acute osseous abnormalit y. IMPRESSION: 1. No acute abdominal abnormality. 2: Enlarged postgravid uterus. 3: Fat-containing periumbilical hernia. Reviewed, dictated and finalized at location B.
[2020-07-11 09:51] VITALS: BP 121/72; PULSE 71; RESP 18; TEMP 36.6; O2SAT 100
[2020-07-11 10:38] LABS: Basophils Percent Auto 0.4 % (0.2-1.2); Eosinophils Percent Auto 0.6 % (0-4.4); Hematocrit 41.6 % (37.0-47.0); Hemoglobin 13.5 g/dL (12.0-15.0); Immature Granulocyte Absolute 0.02 K/mm3 (0.00-0.031); Immature Granulocyte Percent A 0.3 % (0-0.5); Lymphocytes Absolute Auto 2.34 K/mm3 (0.9-3.2); Lymphocytes Percent Auto 33.8 % (18.3-44.2); Mean Corpuscular HGB Conc 32.5 g/dl (32-36); Mean Corpuscular Hemoglobin 27.4 pg (26-34); Mean Corpuscular Volume 84.4 fl (80-100); Mean Platelet Volume 8.8 fl (7.4-10.4); Monocytes Absolute Auto 0.3 K/mm3 (0.1-0.6); Monocytes Percent Auto 4.8 % (2.6-8.5); Neutrophils Absolute Auto 4.2 K/mm3 (1.3-6.7); Neutrophils Percent Auto 60.1 % (45.5-73.1); Platelet Count Result 224 k/mm3 (150-375); Red Blood Count 4.93 M/mm3 (4.2-5.4); Red Cell Distribution Width 13.7 % (11.5-14.5); White Blood Count 6.9 K/mm3 (4.5-10.0)
--- NOTE | 2020-07-11 10:45 | PC.NURSE ---
Pt gone for imaging at this time
[2020-07-11 10:47] LABS: INR 0.9; Prothrombin Time 12.3 Seconds (11.1-14.7)
[2020-07-11 10:48] LABS: Partial Thromboplastin Time 28.7 SECONDS (22.3-36.8)
[2020-07-11 10:49] LABS: Alanine Aminotransferase 11 U/L (4-35); Albumin Level 4.1 g/dL (3.5-5.1); Alkaline Phosphatase 158 U/L (38-126); Anion Gap 6 mmol/L (8-16); Aspartate Amino Transferase 29 U/L (14-36); Bilirubin,Total 0.3 mg/dL (0.2-1.3); Blood Urea Nitrogen 12 mg/dL (7-17); Calcium 9.3 mg/dL (8.4-10.2); Carbon Dioxide 26 mmol/L (22-30); Chloride 105 mmol/L (98-107); Estimated CRCL calculation 90 ml/min; Estimated Glomerular Filt Rate > 60; Glucose 98 mg/dL (65-105); Potassium 4.2 mmol/L (3.4-5.0); Sodium 137 mmol/L (137-145)
[2020-07-11 11:06] LABS: Beta HCG Quantitative 66.72 mIU/ML
[2020-07-11 11:15] LABS: Add Urine Microscopic? YES; Appearance Urine Clear (Clear); Bilirubin Urine Negative (Negative); Blood Urine 2+ (Negative); Color Urine Yellow (Yellow); Glucose Urine UA Negative (Negative); Ketones Urine Negative (Negative); Leukocyte Esterase Ur Trace LEU/UL (Negative); Mucus Urine Rare /lpf; Nitrate Urine Negative (Negative); Protein Urine Negative (Negative); Specific Grav Ur 1.016 (1.001-1.035); Squamous Epithelial Cell Urine Occasional /hpf (Few); Urobilinogen Urine Negative mg/dL (<2.0)
[2020-07-11] MEDS: SODIUM CHLORIDE 0.9% IV 1,000 ML 999 ML IV CONT (11:18)
[2020-07-11 11:19] VITALS: BP 117/82; PULSE 70; RESP 15; O2SAT 98
--- NOTE | 2020-07-11 11:59 | ED.GENADULT ---
HPI - General Adult General Chief complaint: Abdominal Pain Stated complaint: left sided abdominal pain, 1 week post Time Seen by Provider: 07/11/20 09:48 Source: patient and family Mode of arrival: ambulatory Limitations: no limitations History of Present Illness HPI narrative: Patient is a 29-year-old female who presents with intermittent right flank pain abdominal pain localized to the left side of the abdomen that began today while driving is a sharp stabbing cramping pain that subsided on arrival patient was initially seen at her project management advisor's office as she just had a vaginal 1 week ago no complications followed by Dr. Melendez. Patient has light spotting and discharge that is normal for her interpretation denies any pelvic pain or urinary symptoms. Patient notes that she has been slightly constipated. Denies any fever chills nausea vomiting. Related Data Home Medications Medication Instructions Recorded Confirmed mesalamine 4.8 g PO DAILY 06/13/20 07/01/20 sertraline 50 mg PO HS 06/13/20 07/01/20 Allergies Allergy/AdvReac Type Severity Reaction Status Date / Time No Known Allergies Allergy Unknown Verified 07/11/20 09:59 Review of Systems Review of Systems: All systems reviewed & are unremarkable except as noted in HPI and below PMFSH Past Medical History Medical History (Updated 07/11/20 @ 14:05 by Deandre Crandall PA-C) Colitis Family History Family History Father High cholesterol Mother High cholesterol Social History Social History Smoking status: Never smoker Substance use: never Gender identity (if verbalized by the patient): Female Spiritual care concerns: No Exam Narrative: Exam Narrative: GENERAL: Well-appearing, well-nourished, and in no acute distress. HEAD: Normocephalic, atraumatic. EYES: PERRLA and EOMI. ENT: Nares clear, no rhinorrhea or epistaxis. Mucous membranes moist. CHEST: Clear to auscultation. No respiratory distress. No wheezes rales or rhonchi HEART: Regular rate and rhythm. No murmur heard. Normal peripheral pulses. ABDOMEN: Soft, mild left lower abdominal tenderness to palpation no rebound or guarding, nondistendedsounds. EXTREMITIES: Normal range of motion. No edema. SKIN: Warm, dry, no rash. NEURO: No focal deficits. Alert and oriented x3. Cranial nerves II through XII grossly intact PSYCH: Normal mood and affect. Course Course Emergency Course: Patient was evaluated in the emergency department for abdominal pain ultrasound revealed what could potentially be retained products patient's pain has been well controlled she is resting in the room in no distress patient has not required any further interventions and agrees with plan put forth by her project management advisor Dr. Iniguez for outpatient follow-up in the next several days and has been provided with reasons to return patient is afebrile nontoxic-appearing no distress Consultations Consultation #1: Discussed case with Dr. Melendez who would like to follow the patient out patient in the next week is aware of case findings treatment plan and diagnosis Date: 07/11/20 Time: 14:03 Vital Signs Vital signs: Vital Signs Temperature 97.8 F 07/11/20 09:51 Pulse Rate 71 07/11/20 09:51 Respiratory Rate 18 07/11/20 09:51 Blood Pressure 121/72 07/11/20 09:51 Pulse Oximetry 100 07/11/20 09:51 Temperature 97.8 F 07/11/20 09:51 Pulse Rate 70 07/11/20 11:19 Respiratory Rate 15 07/11/20 11:19 Blood Pressure 117/82 07/11/20 11:19 Pulse Oximetry 98 07/11/20 11:19 Medical Decision Making [facility] Narrative Medical decision making narrative: The likely etiology of the patient's discomfort is potentially retained products is seen as ultrasound patient had blood work and CAT scan no other high risk changes or findings patient aware of discussion with her project management advisor agrees with the p
[2020-07-11 14:41] VITALS: BP 134/89; PULSE 87; RESP 15; O2SAT 99
== END 2020-07-11 14:42 | disposition home or self-care (01) ==
PROVIDERS: Emergency Medicine Emergency Medical Services; Emergency Provider Emergency Medicine; PCP Internal Medicine
DX: O72.2 Delayed and secondary postpartum hemorrhage (principal)
CPT/HCPCS: 36415; 74176; 76856; 80053; 81001; 84702; 85025; 85610; 85730; 87077; 87086; 87088; 96365; 99284; J0131; J7030

== ENCOUNTER 2020-07-12 08:05 | Day surgery (SDC) | payer OTHER, SELFPAY ==
[2020-07-12 08:07] VITALS: BMI 27.5
[2020-07-12 09:29] VITALS: BP 122/80; PULSE 82; RESP 16; TEMP 37.2; O2SAT 100
--- NOTE | 2020-07-12 09:40 | WPDANESEPPF ---
Anes - Initial Pre Proc Eval Procedure: Operation Date: 07/12/20 11:00 Proposed Procedures p Suction Dilatation and Curettage - Lele Melendez MD Date/Time: 07/12/20 09:40 Surgeon: Lele Melendez MD Pre Op Diagnosis: retained products, excessive bleeding Patient Data Age: 29 Gender: F Height: 5 ft 5 in Weight: 73.85 kg Last Vital Signs Temp 37.2 C 07/12/20 09:29 Pulse 82 07/12/20 09:29 Resp 16 07/12/20 09:29 BP 122/80 07/12/20 09:29 Pulse Ox 100 07/12/20 09:29 Allergies Allergy/AdvReac Type Severity Reaction Status Date / Time No Known Allergies Allergy Unknown Verified 07/12/20 08:06 Home Medications Medication Instructions Recorded Confirmed Type mesalamine 4.8 g PO HS 06/13/20 07/12/20 History sertraline 50 mg PO HS 06/13/20 07/12/20 History Patient hx anesthesia problems: other (slow to awaken) Family hx anesthesia problems: none PMFSH Past Medical History Medical History Colitis Family History Family History Father High cholesterol Mother High cholesterol Social History Social History Smoking status: Never smoker Substance use: never Living arrangements: with family Additional living arrangements comments: AND CHILDREN Gender identity (if verbalized by the patient): Female Spiritual care concerns: No Anes - Eval Final PreProcedure Day of Procedure 07/12/20 09:40 Patient weight: overweight Heart: regular rate and rhythm Lungs: clear to auscultation Airway: Mallampati scale class II Neurological: alert and oriented Last oral intake: >/= 8 hours ASA classification: II Emergent: no Anesthetic plan: proceed Anesthesia type and monitoring: general GIVS and standard monitoring Informed Consent: The patient's anesthetic plan and its attendant risks and benefits were discussed with the patient/family/POA. Questions were solicited and answers provided to the satisfaction of the patient/family/POA.
[2020-07-12] MEDS: ACETAMINOPHEN 500 MG TABLET 1000 MG PO (09:42)
[2020-07-12] MEDS: LACTATED RINGERS 1,000 ML 30 ML IV CONT (10:00)
--- NOTE | 2020-07-12 10:39 | WPDHPUPDATE1 ---
History and Physical Update Update Date/Time: 07/12/20 10:39 History and Physical has been reviewed, including an updated exam of the patient. There are NO changes in the patient's condition. Risks, benefits, and alternatives have been discussed and questions answered. Patient agrees to proceed with procedure.
--- NOTE | 2020-07-12 10:53 | P.OP_ITS ---
Procedure Note - Detailed Date of procedure: 07/12/20 Pre-op diagnosis: retained products, excessive bleeding Post-op diagnosis: same (Endometriosis, adhesions, hemorrhagic ovarian cyst, follicular cyst,) Procedure performed: Left salpingectomy, left ovarian cystectomy, adhesiolysis, peritoneal biopsy Description of procedure: The patient was taken the operating room. She was prepped and draped in the dorsal lithotomy position after induction of general anesthesia. A 5 mm left upper quadrant incision was made in the abdominal skin with a scalpel. A 5 mm trocar was inserted the intra-abdominal cavity under direct visualization of the scope. A 5 mm left lower quadrant incision was made with the scalp on the abdominal skin and a 5 mm trocar was inserted the intra- abdominal cavity under direct visualization of the scope. A 5 mm infraumbilical incision was made with scalpel and a 5 mm trocar was inserted into the intra- abdominal cavity under direct visualization of the scope. Left ovarian cystectomy was performed. This was performed using sharp and blunt dissection and cautery. There were 2 large cyst in the left ovary. Both were drained and cauterized. The inside surfaces were not removed yet cauterized. Prior to performing cystectomy the left fallopian tube was removed. The mesosalpinx was cauterized transected around the fallopian tube starting at to the area between the tube and ovary and moving medially to the corneal region of the uterus and cauterized and transecting those areas. The area of the tube near the uterus was cauterized transected. There was adhesions removed from around the tube. It was adherent to the left ovary. The fallopian tube needed to be removed prior to cystectomy to create a space for the cystectomy. Adhesiolysis was performed in the posterior cul-de-sac. There were adhesions between the rectum, posterior cul-de-sac, posterior uterus, left fallopian tube and ovary. These adhesions were cauterized transected is much scar tissue was removed from the posterior cul-de-sac as possible. A sample of the right peritoneal surface in the posterior cul-de-sac of the pelvis was taken. This was done with sharp and blunt dissection and cautery. The underlying ureter was observed. It was unharmed. The pelvis was irrigated with copious amounts of normal saline. The pneumoperitoneum was reduced. The trocars were removed. The patient was taken recovery room stable condition. Sponge lap and needle counts were correct x2. Anesthesia: GETA Surgeon: Lele Melendez MD Estimated blood loss (mL): 20 Drains: No Packing: No Complications: No immediate complications Condition: stable Disposition: PACU Findings: Scar tissue around the left fallopian tube and left ovary. It was densely adherent had to be removed to perform cystectomy. Two 4 cm ovarian cyst in left ovary. Once this contain blood clot. Adhesions between the rectum, posterior uterus, left fallopian tube and ovary. Endometriosis near the right ureter in the posterior cul-de-sac of the pelvis.
[2020-07-12] MEDS: LIDOCAINE HCL 1% LOCAL INJ 20 ML VIAL 10 ML INFILTRATE (10:55)
[2020-07-12 11:22] VITALS: BP 110/94; PULSE 89; RESP 15; O2SAT 99
--- NOTE | 2020-07-12 11:30 | PM.PROC ---
Procedure Note - Detailed Date of procedure: 07/12/20 Pre-op diagnosis: retained products, excessive bleeding Post-op diagnosis: same Procedure performed: Suction D&C Description of procedure: The patient was taken the operating room. She has prepped and draped in dorsal lithotomy position after induction of mac anesthesia. A speculum was placed in the vagina. The cervix was grasped with a tenaculum. The cervix was injected at 3 and 9:00 a.m. with 1% lidocaine. The cervix was dilated up to 8 mm using Garza dilators. An 8 curved plastic suction curette was then applied to the intrauterine cavity. All of the surfaces in the intrauterine cavity were curettage under VAC. A sharp medium-size curette was then used to curettage all the surfaces to confirmed the removal of all the products conception. When all surfaces for bleed to be clean the curette was removed. The suction curette was then reapplied to remove all the debris. The procedure was terminated. The tenaculum was removed. The speculum was removed. The patient tolerated the procedure well. She was taken recovery room in stable condition. Anesthesia: MAC Surgeon: Lele Melendez MD Estimated blood loss (mL): 200 Drains: No Packing: No Pathology: yes Complications: No immediate complications Condition: stable Disposition: PACU Findings: Normal vulva vagina and cervix. The moderate amounts of products conception. 13 cm uterus.
[2020-07-12 11:50] VITALS: BP 113/79; PULSE 80; RESP 16
[2020-07-12 12:20] VITALS: BP 110/94; PULSE 84; RESP 16
== END 2020-07-12 12:50 | disposition home or self-care (01) ==
PROVIDERS: PCP Internal Medicine; Visit Provider Obstetrics & Gynecology
PROC: (CPT 59160; principal; 2020-07-12 11:00)
DX: O72.2 Delayed and secondary postpartum hemorrhage (principal)
CPT/HCPCS: 59160; 88305; A9270; J2250; J2704; J3010; J7120

== ENCOUNTER 2022-05-24 14:11 | Emergency (ER) | payer OTHER, SELFPAY ==
--- NOTE | ~2022-05-24 | XR_ITS ---
EXAM: XR ankle RT min 3V, XR foot RT min 3V DATE: 05/24/2022 15:22 HISTORY: ROLLED TWICE IN 5 DAYS. LATERAL PAIN/SWELLING. . COMPARISON: None available. FINDINGS: Normal mineralization. No fracture or dislocation. No lytic or blastic lesion. Plantar and Achilles enthesopathy. Joint spaces are maintained. No erosion or periosteal change. Soft tissues wi thin normal limits. IMPRESSION: No acute osseous finding in the right ankle or foot. Reviewed, dictated and finalized at location K. [employer] IMPRESSION: No acute osseous finding in the right ankle or foot.
[2022-05-24 14:24] VITALS: BP 127/73; PULSE 75; RESP 14; TEMP 37.2; O2SAT 100
--- NOTE | 2022-05-24 15:00 | ED.LOWEXIN ---
HPI - Extremity Injury (Lower) General Chief Complaint: Extremity Injury, Lower Stated Complaint: right ankle injury Source: patient and RN notes reviewed History of Present Illness HPI Narrative: 31 yo F presents to urgent care with complaints of right ankle pain and swelling. Pt statse she rolled her ankle 2x in the last 48 hours. Pt denies any falls. Denies any numbness or tingling. Pt has been taking ibuprofen and Tylenol at home. Related Data Home Medications Medication Instructions Recorded Confirmed mesalamine 1.2 gram tablet,delayed 4.8 g PO HS 06/13/20 07/12/20 release sertraline 50 mg tablet 50 mg PO HS 06/13/20 07/12/20 Allergies Allergy/AdvReac Type Severity Reaction Status Date / Time No Known Allergies Allergy Unknown Verified 07/12/20 09:44 Review of Systems Review of Systems: CONSTITUTIONAL: Denies fever, chills, or sweats. EYES: Denies visual changes, redness, or discharge. ENT: Denies otalgia and sore throat CARDIOVASCULAR: Denies chest pain, palpitations, or edema. RESPIRATORY: Denies cough or dyspnea. GASTROINTESTINAL: Denies abdominal pain, nausea, vomiting, or diarrhea. GENITOURINARY: Denies dysuria or hematuria. SKIN: Denies rash or itching. MUSCULOSKELETAL: right ankle and foot pain and swelling. NEUROLOGIC: Denies headache, numbness, or weakness. PMFSH Past Medical History Medical History Colitis Family History Family History Father High cholesterol Mother High cholesterol Social History Social History Smoking status: Never smoker Substance use: never Living arrangements: with family Additional living arrangements comments: AND CHILDREN Gender identity (if verbalized by the patient): Female Spiritual care concerns: No Comments At the time of my signature, I reviewed and agree with the nursing past medical, surgical, social, and family history. There is no relevant family history pertinent to the patient complaint. Exam Narrative: GENERAL: This is a well-nourished, well-developed patient, in no apparent distress. HEAD: normocephalic, atraumatic. EYES: PERRL. Sclera clear/white. Vision is grossly intact. EARS: External ears normal, auditory canals clear and without drainage, TMs normal without perforation. Hearing grossly intact. NOSE: External nose normal with no obvious nasal discharge, nares without redness, no rhinorrhea. THROAT: Mucous membranes moist, posterior pharynx clear. NECK: Neck supple, non-tender without lymphadenopathy, masses or thyromegaly. CARDIOVASCULAR: Regular rate RESPIRATORY: No acute respiratory distress. GASTROINTESTINAL: Abdomen soft, non-tender, nondistended. Bowel sounds are active. No hepato-splenomegaly, or palpable masses. No guarding. SKIN: warm, intact with no suspicious lesions or rash, good texture and turgor. NEURO: awake, alert, and oriented to person, place and time. There were no obvious focal neurologic abnormalities. EXTREMITIES: mild swelling to right dorsal/lateral foot and lateral ankle. Course Course Level of Care: Express Care Visit Vital Signs Vital signs: Vital Signs Temperature 99.0 F 05/24/22 14:24 Pulse Rate 75 05/24/22 14:24 Respiratory Rate 14 05/24/22 14:24 Blood Pressure 127/73 05/24/22 14:24 Pulse Oximetry 100 05/24/22 14:24 Oxygen Delivery Room Air 05/24/22 14:24 Temperature 99.0 F 05/24/22 14:24 Pulse Rate 75 05/24/22 14:24 Respiratory Rate 14 05/24/22 14:24 Blood Pressure 127/73 05/24/22 14:24 Pulse Oximetry 100 05/24/22 14:24 Oxygen Delivery Room Air 05/24/22 14:24 Reviewed MDM - Extremity Injury (Lower) MDM Narrative Medical decision making narrative: Use the RICE method at home. May take ibuprofen and/or Tylenol at home if needed for pain. If symptoms pers
== END 2022-05-24 15:51 | disposition home or self-care (01) ==
PROVIDERS: Emergency Provider Nurse Practitioner Family; PCP Internal Medicine
DX: S93.401A Sprain of unspecified ligament of right ankle, initial encounter (principal); S96.911A Strain of unspecified muscle and tendon at ankle and foot level, right foot, initial encounter; S93.601A Unspecified sprain of right foot, initial encounter; X50.9XXA Other and unspecified overexertion or strenuous movements or postures, initial encounter
CPT/HCPCS: 73610; 73630; 99213; G0463

== ENCOUNTER 2023-11-29 15:48 | Emergency (ER) | payer BC, SELFPAY ==
--- NOTE | ~2023-11-29 | XR_ITS ---
EXAM: XR foot LT min 3V DATE: 11/29/2023 16:12 HISTORY: injury . COMPARISON: None available. FINDINGS: Normal mineralization. No fracture or dislocation. No lytic or blastic lesion. Mild scatte red degenerative changes. Achilles and plantar enthesopathy. No erosion or periosteal change. Soft ti ssues within normal limits. IMPRESSION: No acute osseous finding the left foot. Reviewed, dictated and finalized at location K.
[2023-11-29 15:54] VITALS: BP 134/77; PULSE 67; RESP 20; TEMP 37.1; O2SAT 100
--- NOTE | 2023-11-29 16:05 | ED.LOWEXIN ---
HPI - Extremity Injury (Lower) General Stated Complaint: Fall Injury/Left Foot Injury Time Seen by Provider: 11/29/23 16:05 Source: patient Mode of arrival: ambulatory Limitations: no limitations History of Present Illness HPI Narrative: 33-year-old female presents with complaint of pain to left foot. Patient states that she tripped over her own feet 2 days ago and twisted left foot. Ambulatory with slight limp. Range of motion and distal neurovascularly intact. 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 States that at end of day today her left foot was throbbing. All systems reviewed and negative except as noted above. Related Data Home Medications Medication Instructions Recorded Confirmed citalopram 20 mg tablet 20 mg PO DAILY 11/29/23 11/29/23 tofacitinib 22 mg tablet,extended 22 mg PO DAILY 11/29/23 11/29/23 release 24 hr (Xeljanz XR) Allergies Allergy/AdvReac Type Severity Reaction Status Date / Time No Known Allergies Allergy Unknown Verified 11/29/23 16:20 Review of Systems Review of Systems: CONSTITUTIONAL: Denies fever, chills, or sweats. EYES: Denies visual changes, redness, or discharge. ENT: Denies rhinorrhea, congestion, sore throat, or otalgia. CARDIOVASCULAR: Denies chest pain, palpitations, or edema. RESPIRATORY: Denies cough or dyspnea. GASTROINTESTINAL: Denies abdominal pain, nausea, vomiting, or diarrhea. GENITOURINARY: Denies dysuria or hematuria. SKIN: Denies rash or itching. MUSCULOSKELETAL: Denies back pain, joint pain, or myalgia. Reports left foot pain. NEUROLOGIC: Denies headache, numbness, or weakness. PSYCHIATRIC: Denies anxiety or depression. All other systems reviewed are negative, except as documented in HPI. [facility] Past Medical History Medical History Colitis Family History Family History Father High cholesterol Mother High cholesterol Social History Social History Smoking status: Never smoker Substance use: never Living arrangements: with family Additional living arrangements comments: AND CHILDREN Gender identity (if verbalized by the patient): Female Spiritual care concerns: No Comments At time of signature, agree with nursing past medical, surgical, social and family history. There is no relevant family history pertinent to the presenting complaint. Exam Narrative: GENERAL: This is a well-nourished, well-developed patient, in no apparent distress. HEAD: normocephalic, atraumatic. EYES: PERRL. Sclera clear/white. Vision is grossly intact. EARS: External ears normal NOSE: External nose normal NECK: Neck supple, non-tender without lymphadenopathy, masses or thyromegaly. CARDIOVASCULAR: Regular rate and rhythm without murmurs, gallops, or rubs. RESPIRATORY: Clear to auscultation. Breath sounds equal bilaterally. No wheezes, rales, or rhonchi. SKIN: warm, Dry, intact with no suspicious lesions or rash, good texture and turgor. NEURO: awake, alert, and oriented to person, place and time. There were no obvious focal neurologic abnormalities. EXTREMITIES: Tenderness to lateral aspect left foot, distal aspect 5th metatarsal. No swelling or deformity noted. Range of motion and distal neurovascularly intact. Course Course Level of Care: Express Care Visit Vital Signs Vital signs: Vital Signs Temperature 37.1 C 11/29/23 15:54 Pulse Rate 67 11/29/23 15:54 Respiratory Rate 20 11/29/23 15:54 Blood Pressure 134/77 11/29/23 15:54 Pulse Oximetry 100 11/29/23 15:54 Oxygen Delivery Room Air 11/29/23 15:54 Temperature 37.1 C 11/29/23 15:54 Pulse Rate 67 11/29/23 15:54 Respiratory Rate 20 11/29/23 15:54 Blood Pressure 134/77 11/29/23 15:54 Pulse Oximetry 100 11/29/23 15:54 Oxygen Delivery Room Air 11/29/23 15:54
== END 2023-11-29 16:30 | disposition home or self-care (01) ==
PROVIDERS: Emergency Provider Nurse Practitioner Family; PCP Internal Medicine
DX: S93.602A Unspecified sprain of left foot, initial encounter (principal); W18.49XA Other slipping, tripping and stumbling without falling, initial encounter
CPT/HCPCS: 73630; 99213; G0463